=== PATIENT | female | born 1990 | race Caucasian/White ===

== ENCOUNTER 2020-01-10 00:10 | Emergency (ER) | payer OTHER, SELFPAY ==
[2020-01-10 00:14] VITALS: BP 143/91; PULSE 102; RESP 15; TEMP 37; O2SAT 98
[2020-01-10] MEDS: LIDOCAINE HCL 2% GEL UROJET 10 ML PKG (00:40)
--- NOTE | 2020-01-10 00:44 | ED.GENADULT ---
HPI - General Adult General Chief complaint: Unspecified Stated complaint: FB Rectum Time Seen by Provider: 01/10/20 00:17 Source: patient Mode of arrival: ambulatory Limitations: no limitations History of Present Illness HPI narrative: Patient is a 29-year-old female who presents to emergency department for evaluation of rectal foreign body that occurred just prior to arrival accidentally the foreign body slipped into the rectum patient denying any pain presents in no distress Review of Systems Review of Systems: All systems reviewed & are unremarkable except as noted in HPI and below PMFSH Social History Social History (Updated 01/10/20 @ 00:45 by Alex Delgado PA-C) Smoking status: Never smoker Exam Narrative: Exam Narrative: GENERAL: Well-appearing, well-nourished, and in no acute distress. HEAD: Normocephalic, atraumatic. EYES: PERRLA and EOMI. ENT: Nares clear, no rhinorrhea or epistaxis. Mucous membranes moist. RECTAL: Rectal foreign body deactivating much digitally all large lower extremity viscous lidocaine was used small amount of blood after which patient tolerated the procedure without difficulty removed manually. ABDOMEN: Soft, nontender, nondistended EXTREMITIES: Normal range of motion. No edema. SKIN: Warm, dry, no rash. NEURO: No focal deficits. Alert and oriented x3. PSYCH: Normal mood and affect. Course Course Emergency Course: Patient in the room in no distress aware of case findings treatment plan diagnosis agreeing to follow-up withGastroenterology and primary care for further evaluation given reasons to return Vital Signs Vital signs: Vital Signs Temperature 98.6 F 01/10/20 00:14 Pulse Rate 102 H 01/10/20 00:14 Respiratory Rate 15 01/10/20 00:14 Blood Pressure 143/91 H 01/10/20 00:14 Pulse Oximetry 98 01/10/20 00:14 Temperature 98.6 F 01/10/20 00:14 Pulse Rate 102 H 01/10/20 00:14 Respiratory Rate 15 01/10/20 00:14 Blood Pressure 143/91 H 01/10/20 00:14 Pulse Oximetry 98 01/10/20 00:14 Medical Decision Making [facility] Narrative Medical decision making narrative: Patient with rectal foreign body removed in the emergency department afebrile nontoxic-appearing no distress feels comfortable for discharge home provided with reasons to return Vital Signs Vital Signs: Vital Signs Temperature 98.6 F 01/10/20 00:14 Pulse Rate 102 H 01/10/20 00:14 Respiratory Rate 15 01/10/20 00:14 Blood Pressure 143/91 H 01/10/20 00:14 Pulse Oximetry 98 01/10/20 00:14 Temperature 98.6 F 01/10/20 00:14 Pulse Rate 102 H 01/10/20 00:14 Respiratory Rate 15 01/10/20 00:14 Blood Pressure 143/91 H 01/10/20 00:14 Pulse Oximetry 98 01/10/20 00:14 Discharge Plan Discharge Clinical Impression: Foreign body anus/rectum Patient Disposition: Home, Self-Care Condition: Stable Instructions: Antibiotic Form, Rectal Foreign Body (ED) Additional Instructions: Follow up with 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 Go to ER for worsening pain, nausea/vomitting, fever/chills, chest pain, shortness of breath, blood in stools or urine, etc. or any other concerns. Take any prescribed medications as directed. If you do not have a drug allergy to tylenol or motrin and can tolerate it then take tylenol or motrin as needed for discomfort/pain. Follow-up/Referrals: PHYSICIAN,HEALTH CLINICIAN [Primary Care Provider] - Erasmo Valente MD [Physician] -
== END 2020-01-10 01:00 | disposition home or self-care (01) ==
PROVIDERS: Emergency Provider Emergency Medicine
DX: T18.5XXA Foreign body in anus and rectum, initial encounter (principal)
CPT/HCPCS: 99282

== ENCOUNTER 2021-04-08 00:18 | Emergency (ER) | payer SELFPAY ==
--- NOTE | ~2021-04-08 | CT_ITS ---
EXAMINATION: CT abdomen pelvis w con DATE: 04/08/2021 02:51 INDICATION: Left lower quadrant abdominal pain for 6 hours TECHNIQUE: Computed tomography (CT) of the abdomen and pelvis was performed with 100 CC Omnipaque 350 intravenous contrast. Automated exposure control and iterative reconstruction technique were employe d. Exam dose: 807.36 mGy-cm total exam DLP. COMPARISON: None. FINDINGS: The lung bases are clear. Normal heart size. No pericardial or pleural effusion. The liver, gallbladder, bile ducts, spleen, pancreas, pancreatic duct, and adrenal glands and kidneys are unremarkable. No urinary tract calculus or hydroureteronephrosis. The urinary bladder is normal in appearance. There is an IUD in expected position within the uterus. Uterus and adnexal areas are o therwise unremarkable. Normal caliber of the abdominal aorta. No intraperitoneal or retroperitoneal or pelvic mass lesion or adenopathy or ascites. Normal appendix. Mild colonic diverticulosis; no CT evidence of diverticulitis. No bowel obstruction or intraperitoneal free air. Small fat-containing umbilical hernia. Included skeletal structures are unremarkable; no suspicious osteolytic or osteoblastic lesions. IMPRESSION: Mild colonic diverticulosis; no CT evidence of diverticulitis Normal appendix IUD in expected position Reviewed, dictated and finalized at [facility]. Reviewed, dictated and finalized at [facility]. 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
--- NOTE | ~2021-04-08 | US_ITS ---
EXAMINATION: US pelvic complete w TV DATE: 04/08/2021 04:15 INDICATION: Left ovarian mass. TECHNIQUE: Multiple transabdominal and transvaginal sonographic images of the pelvis were obtained. COMPARISON: CT 04/08/2021 FINDINGS: TRANSABDOMINAL ULTRASOUND: The uterus measures 10.4 x 6.3 x 4.6 cm. There is no free fluid in the pelvis. TRANSVAGINAL ULTRASOUND: The endometrial complex measures 5 mm in thickness. There is an intrauterine device in expected posit ion. The right ovary measures 3.9 x 2.7 x 2.8 cm. The left ovary measures 3.4 x 2.6 x 3.5 cm. There i s normal vascular flow in the ovaries. IMPRESSION: 1. Normal ovaries. 2. Intrauterine device in expected position. Reviewed, dictated and finalized at [facility]. 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
[2021-04-08 00:50] VITALS: BP 134/89; PULSE 98; RESP 18; TEMP 36.7; O2SAT 99
[2021-04-08] MEDS: SODIUM CHLORIDE 0.9% IV 1,000 ML 999 ML IV CONT (01:35)
[2021-04-08 01:40] LABS: Basophils Percent Auto 0.3 % (0.2-1.2); Eosinophils Absolute Auto 0.1 K/mm3 (0-0.3); Eosinophils Percent Auto 1.5 % (0-4.4); Hematocrit 38.9 % (37.0-47.0); Hemoglobin 13.3 g/dL (12.0-15.0); Immature Granulocyte Absolute 0.02 K/mm3 (0.00-0.031); Immature Granulocyte Percent A 0.2 % (0-0.5); Lymphocytes Absolute Auto 2.39 K/mm3 (0.9-3.2); Lymphocytes Percent Auto 26.8 % (18.3-44.2); Mean Corpuscular HGB Conc 34.2 g/dl (32-36); Mean Corpuscular Volume 96.5 fl (80-100); Mean Platelet Volume 9.9 fl (7.4-10.4); Monocytes Absolute Auto 0.6 K/mm3 (0.1-0.6); Monocytes Percent Auto 6.4 % (2.6-8.5); Neutrophils Absolute Auto 5.8 K/mm3 (1.3-6.7); Neutrophils Percent Auto 64.8 % (45.5-73.1); Platelet Count Result 254 k/mm3 (150-375); Red Blood Count 4.03 M/mm3 (4.2-5.4); Red Cell Distribution Width 11.8 % (11.5-14.5); White Blood Count 8.9 K/mm3 (4.5-10.0)
[2021-04-08 01:53] LABS: Alanine Aminotransferase 22 U/L (4-35); Albumin Level 4.4 g/dL (3.5-5.1); Alkaline Phosphatase 55 U/L (38-126); Anion Gap 7 mmol/L (8-16); Aspartate Amino Transferase 31 U/L (14-36); Bilirubin,Total 0.9 mg/dL (0.2-1.3); Blood Urea Nitrogen 12 mg/dL (7-17); Carbon Dioxide 27 mmol/L (22-30); Chloride 103 mmol/L (98-107); Estimated CRCL calculation 115 ml/min; Estimated Glomerular Filt Rate > 60; Glucose 89 mg/dL (65-110); Lipase 83 U/L (23-300); Sodium 137 mmol/L (137-145)
--- NOTE | 2021-04-08 02:14 | ED.ABDPAIN ---
HPI - Abdominal Pain General Chief Complaint: Abdominal Pain Stated Complaint: ABD/Pelvic Pain Time Seen by Provider: 04/08/21 01:02 Source: patient History of Present Illness HPI narrative: Patient presented with left lower quadrant abdominal pain. Reports symptoms started this evening has been getting progressively worse. Pain is sharp, constant, no radiation, no clear aggravating or alleviating factors. She has not noted any nausea vomiting or diarrhea. She denies any fevers. Denies any urinary symptoms or vaginal bleeding. Related Data Home Medications Medication Instructions Recorded Confirmed Adderall BYMOUTH BID 04/08/21 Allergies Allergy/AdvReac Type Severity Reaction Status Date / Time diphenhydramine Allergy Severe Hives Verified 04/08/21 02:11 [From Benadryl] hydrocodone AdvReac Nausea Verified 04/08/21 02:12 Review of Systems Review of Systems: CONSTITUTIONAL: Denies fever, chills, or sweats. EYES: Denies visual changes, redness, or discharge. ENT: Denies rhinorrhea, congestion, sore throat, or otalgia. CARDIOVASCULAR: Denies chest pain, palpitations, or edema. RESPIRATORY: Denies cough or dyspnea. GASTROINTESTINAL: Denies nausea, vomiting, or diarrhea. GENITOURINARY: Denies dysuria or hematuria. SKIN: Denies rash or itching. MUSCULOSKELETAL: Denies back pain, joint pain, or myalgia. NEUROLOGIC: Denies headache, numbness, dizziness, or weakness. PSYCHIATRIC: Denies anxiety or depression. All systems reviewed & are unremarkable except as noted in HPI and below PMFSH Social History Social History Smoking status: Never smoker Exam Narrative: GENERAL: Well-appearing, well-nourished, and in no acute distress. HEAD: Normocephalic, atraumatic. EYES: PERRLA and EOMI. ENT: Nares clear, no rhinorrhea or epistaxis. Mucous membranes moist. NECK: Supple. No masses. No JVD CHEST: Clear to auscultation. No respiratory distress. No wheezes rales or rhonchi HEART: Regular rate and rhythm. No murmur heard. Normal peripheral pulses. ABDOMEN: Moderate tenderness in the left lower quadrant soft, nondistended, normal active bowel sounds. EXTREMITIES: Normal range of motion. No edema. SKIN: Warm, dry, no rash. NEURO: No focal deficits. Alert and oriented x3. PSYCH: Normal mood and affect. Course Reevaluation(s) Reevaluation #1: Patient resting comfortably results and plan reviewed with patient. Patient is comfortable with outpatient plan. Date: 04/08/21 Time: 05:26 Vital Signs Vital signs: Vital Signs Temperature 36.7 C 04/08/21 00:50 Pulse Rate 98 04/08/21 00:50 Respiratory Rate 18 04/08/21 00:50 Blood Pressure 134/89 04/08/21 00:50 Pulse Oximetry 99 04/08/21 00:50 Temperature 36.7 C 04/08/21 05:35 Pulse Rate 78 04/08/21 05:35 Respiratory Rate 16 04/08/21 05:35 Blood Pressure 108/65 04/08/21 05:35 Pulse Oximetry 98 04/08/21 05:35 MDM - Abdominal Pain MDM Narrative Medical decision making narrative: H&P as above, vss, pt looks clinically well, exam tenderness in the left lower quadrant, labs unremarkable, img with involuting follicle on the left ovary, additional labs/img considered, symptomatic relief available as needed, on reevaluation pt continues to looks clinically well. Suspect follicle is the source of pain, dns diverticulitis, bowel obstruction, torsion. plan to tx/monitor as op w/ pcm f/u findings/plan discussed with pt, pt agree/comfortable with plan, return precautions given Lab Data Result diagrams: 04/08/21 01:31 04/08/21 01:31 Labs: Lab Results 04/08/21 04/08/21 Range/Units 01:31 01:31 WBC 8.9 (4.5-10.0) K/mm3 RBC 4.03 L (4.2-5.4) M/mm3 Hgb 13.3 (12.0-15.0) g/dL Hct 38.9 (37.0-47.0) % MCV 96.5 (80-100) fl MCH 33.0 (26-34) pg MCHC 34.2 (32-36) g/dl RDW 11.8 (11.5-14.5) % Plt Count 254 (150-375) k/mm3 MPV 9.9 (7
[2021-04-08] MEDS: IBUPROFEN 600 MG TABLET PO (03:46)
[2021-04-08 05:35] VITALS: BP 108/65; PULSE 78; RESP 16; TEMP 36.7; O2SAT 98
== END 2021-04-08 05:40 | disposition home or self-care (01) ==
PROVIDERS: Emergency Provider Emergency Medicine
DX: R10.32 Left lower quadrant pain (principal)
CPT/HCPCS: 36415; 74177; 76830; 76856; 80053; 81025; 83690; 85025; 96360; 99284; A9270; J7030; Q9967